=== PATIENT | male | born 1960 | race Caucasian/White ===

== ENCOUNTER → 2017-04-24 | Outpatient (CLI) | payer OTHER ==
[~2017-04-24] MED LIST: AMBEREN PO; AMOXICILLIN 50500 M1 PO; ANTIBIOTIC; ANTIBIOTIC28.4 GM; BACLOFEN20 MG PO; CARBAMAZEPINE100 M2 PO; CELEXA 20 MG TA20 M1 PO; CELEXA20 MG PO; CELEXA40 MG PO; CYMBALTA20 MG PO; CYMBALTA60 MG PO; FISH OIL 1,0001 EAC5 PO; GRALISE600 MG PO; LEVAQUIN 500 M500 M2 PO; LEXAPRO20 MG PO; LINZESS145 MCG PO; LORTAB 7.5/5001 TA3 PO; METHADONE HCL5 MG PO; MUCINEX DM ER1 EAC1 PO; NAPROSYN500 MG PO; NEURONTIN 300300 M1 PO; NEURONTIN600 MG PO; NORCO 10-325 T1 EACH PO; NUCYNTA100 MG PO; NUCYNTA50 MG PO; NUCYNTA75 MG PO; TEGRETOL XR100 MG PO; VOLTAREN GEL 1100 G2 TOP; [UNRECOGNIZED DRUG - SUPPLY] PO
== END ==
LOC: MRI 10:50
DX: M43.22 Fusion of spine, cervical region (principal); M47.892 Other spondylosis, cervical region

== ENCOUNTER → 2020-06-03 | Outpatient (CLI) | payer OTHER | LOC: LAB 13:49 | PROVIDERS: ATTEND Nurse Practitioner | DX: Z20.828 Contact with and (suspected) exposure to other viral communicable diseases (principal) ==

== ENCOUNTER → 2021-01-10 | Outpatient (CLI) | payer OTHER | LOC: ULTRA 14:58 | PROVIDERS: ATTEND Nurse Practitioner | DX: S30.0XXA Contusion of lower back and pelvis, initial encounter (principal); M53.3 Sacrococcygeal disorders, not elsewhere classified; W19.XXXA Unspecified fall, initial encounter; Y93.89 Activity, other specified; Y92.89 Other specified places as the place of occurrence of the external cause; Y99.8 Other external cause status ==